=== PATIENT | male | born 1985 | race Caucasian/White ===

== ENCOUNTER 2017-03-14 10:49 | Emergency (ER) | payer MEDICAID ==
[~2017-03-14] VITALS: Ht 170.2 cm; Wt 103.0 kg
[~2017-03-14 10:49] MED LIST: BEN50 PO; CEPH-443 PO; HYDR-906 PO; IBUP-1542 PO; PRED20TA PO
[2017-03-14 10:52] VITALS: Ht 170.2 cm; Wt 103.0 kg
--- NOTE | 2017-03-14 11:30 | ERD ---
ER Documentation Chief Complaint Chief Complaint pt sent by clinic for +TB test, needs x-ray HPI 31-year-old male who was referred to the emergency room for a chest x-ray after having a positive PPD test read this afternoon. The patient had the tuberculin skin testing done 3 days ago and went in for reading and states that this is his first positive test. He has a scar to his right upper extremity which she believes is the BCG vaccination, and he is originally from [place]. He denies any cough symptoms, hemoptysis, fevers, chills or night sweats. He is otherwise healthy, and he has not had any recent travel. ROS All systems reviewed and are negative except as per history of present illness. Medications Home Meds Active Scripts Cephalexin* (Keflex*) 500 Mg Capsule, 500 MG PO QID for 5 Days, CAP Prov:LIZZIE JAMES NP 01/30/16 Hydrocodone/Acetaminophen ([place] 5-325 Tablet) 1 Each Tablet, 1 TAB PO Q6H Y for PAIN, #20 TAB Prov:LIZZIE JAMES NP 01/30/16 Ibuprofen* (Motrin*) 600 Mg Tab, 600 MG PO Q6H Y for PAIN AND OR ELEVATED TEMP, #30 TAB Prov:LIZZIE JAMES NP 01/30/16 Diphenhydramine Hcl* (Benadryl*) 50 Mg Cap, 50 MG PO Q6 Y for ITCHING, #20 Prov:MELCHOR CHANDLER PA-C 11/22/14 Prednisone* (Prednisone*) 20 Mg Tab, 20 MG PO BID for 5 Days Prov:MELCHOR CHANDLER PA-C 11/22/14 Allergies Allergies: Coded Allergies: No Known Allergy (Unverified , 11/22/14) PMhx/Soc Hx Alcohol Use: No Hx Substance Use: No Hx Tobacco Use: No Physical Exam Vitals Vital Signs Date Time Temp Pulse Resp B/P Pulse Ox O2 Delivery O2 Flow Rate FiO2 03/14/17 10:52 98.3 106 16 142/86 100 Physical Exam General: Well-developed, well-nourished. The patient appears in no acute distress. HEENT: Head is normocephalic, atraumatic. No scleral icterus. Neck: Supple. Nontender. Lungs: Clear to auscultation. Normal air movement. Heart: Regular rate and rhythm. S1 and S2 are normal. No murmurs, gallops, or rubs. Abdomen: Soft, nontender, nondistended. Bowel sounds are normoactive. Extremities: No clubbing or cyanosis. Normal pulses. Moving extremities x 4. No weakness. Neurologic: Alert and oriented 3. No focal deficits. Skin: Normal turgor. No rash or lesions. Results 24 hrs DIAGNOSTIC IMAGING REPORT Patient: ELIZABETH MUNSON : 1985 Age: 31 Sex: M MR #: [id number] DOS: 03/14/17 1108 Ordering MD: MELCHOR CHANDLER PA-C Location: [facility] Room/Bed: PROCEDURE: XR Chest. CLINICAL INDICATION: Positive PPD TECHNIQUE: PA and lateral views of the chest were obtained COMPARISON: None FINDINGS: The heart and mediastinum are within normal limits. The lungs are clear. There is no pleural effusion or pneumothorax. The bones and soft tissues are unremarkable. IMPRESSION: No active disease. No radiographic evidence of active tuberculosis. RPTAT: AA .Cliff Cortes MD, MD Date Time Electronically viewed and signed by .Cliff Cortes MD, MD on 03/14/2017 11: 31 .S/ CC: MELCHOR CHANDLER PA-C Procedures/MDM 31-year-old male who received a BCG vaccination comes in with a positive tuberculin skin test noted today. The patient is asymptomatic however was sent to the emergency department to rule out active TB disease and his chest x-ray today is normal. A 2 view chest x-ray shows no evidence of active disease likely reactive. To further evaluate the patient will likely need further blood work and will be referred back to the clinic for outpatient management. Departure Diagnosis: Primary Impression: Positive reaction to tuberculin skin test Condition: Good MELCHOR CHANDLER PA-C Mar 14, 2017 11:30
== END 2017-03-14 11:48 | disposition home or self-care (01) ==
LOC: FTE 10:49
DX: R76.11 Nonspecific reaction to tuberculin skin test without active tuberculosis (principal)
CPT/HCPCS: 71020; Z7502

== ENCOUNTER 2017-03-16 11:41 | Emergency (ER) | payer MEDICAID ==
[~2017-03-16] VITALS: Wt 102.3 kg
--- NOTE | 2017-03-16 15:00 | ERD ---
ER Documentation Chief Complaint Chief Complaint BODYACHES, ONSET SEVERAL DAYS HPI 31-year-old male, presents to the emergency department complaining of a one- week with diffuse joint and muscle pain. The pain is described as dull, deep, intermittent, 5/10. The pain gets partially better with Tylenol. No history of fever, chills, no rashes, no weight loss. The patient is requesting an excuse from work for 1 week, states that he is feeling very tired. ROS SYSTEMIC symptoms: no fever, chills, no night sweats, no weight loss EYE symptoms: No blurred vision, no eye discharge OTOLARYNGEAL symptoms: No hearing loss. No ear pain, no sore throat CARDIOVASCULAR symptoms: No chest pain or discomfort, no palpitations. PULMONARY symptoms: No dyspnea, no cough, no wheezing. GASTROINTESTINAL symptoms: No abdominal pain, no nausea, no vomiting, no diarrhea MUSCULOSKELETAL symptoms: + arthralgias, +muscle aches. NEUROLOGY symptoms: No confusion, no syncope, no numbness or tingling. SKIN: No rashes Medications Home Meds Active Scripts Hydrocodone/Acetaminophen ([place] 5-325 Tablet) 1 Each Tablet, 1 TAB PO Q6H Y for PAIN, #12 TAB Prov:VICKI ROJAS MD 03/16/17 Prednisone* (Prednisone*) 20 Mg Tab, 40 MG PO DAILY for 4 Days, TAB Prov:VICKI ROJAS MD 03/16/17 Cephalexin* (Keflex*) 500 Mg Capsule, 500 MG PO QID for 5 Days, CAP Prov:LIZZIE JAMES NP 01/30/16 Hydrocodone/Acetaminophen ([place] 5-325 Tablet) 1 Each Tablet, 1 TAB PO Q6H Y for PAIN, #20 TAB Prov:LIZZIE JAMES NP 01/30/16 Ibuprofen* (Motrin*) 600 Mg Tab, 600 MG PO Q6H Y for PAIN AND OR ELEVATED TEMP, #30 TAB Prov:LIZZIE JAMES NP 01/30/16 Diphenhydramine Hcl* (Benadryl*) 50 Mg Cap, 50 MG PO Q6 Y for ITCHING, #20 Prov:MELCHOR CHANDLER PA-C 11/22/14 Prednisone* (Prednisone*) 20 Mg Tab, 20 MG PO BID for 5 Days Prov:MELCHOR CHANDLER PA-C 11/22/14 Allergies Allergies: Coded Allergies: No Known Allergy (Unverified , 11/22/14) PMhx/Soc Medical and Surgical Hx: pt denies Medical Hx, pt denies Surgical Hx Hx Alcohol Use: No Hx Substance Use: No Hx Tobacco Use: No Smoking Status: Never smoker Physical Exam Vitals Vital Signs Date Time Temp Pulse Resp B/P Pulse Ox O2 Delivery O2 Flow Rate FiO2 03/16/17 15:08 98.0 80 18 142/66 99 Room Air 03/16/17 11:44 98.7 87 18 153/84 99 Physical Exam Patient is in no acute distress, vital signs stable. Alert and fully oriented. EYES: PERRLA, EOMI, Sclera and conjunctiva appear normal. EARS: Canals clear, tympanic membranes WNL THROAT: Normal oropharynx. NECK: Supple, No lymphadenopathy. Full ROM without pain or tenderness. HEART: RRR, no rubs, murmurs, clicks or gallops. LUNGS: Clear to auscultation. ABDOMEN: Soft, non-tender without masses or hepatosplenomegaly. EXTREMITIES: No edema bilaterally. BACK: Full ROM, no deformity, normal back exam NEURO: Cranial nerves grossly intact, no motor or sensory deficit Procedures/MDM 31y/o male patient with no medical history, presents to the ED c/o generalized arthralgia and fatigue for 7 days. Vital signs stable, Physical exam unremarkable, no evidence of inflammatory arthritis. Differential diagnosis include but not limited to: Viral infection, autoimmune process, chronic fatigue syndrome, depression. Low suspicion for malignancy. Physical examination and clinical presentation consistent most likely with reactive arthritis most likely viral. During the ED course the patient remained stable, no new complaints. Results and clinical impression discussed with patient who agrees with management. The patient is stable to be treated outpatient and will be discharged home with a Rx for prednisone and [place], some side effects of prescribed medications (headache, rash, nausea, vomiting, diarrhea, drowsiness, habituation, bleeding, hypertension, interactions with other medications) were reviewed. The patient was instructed to follow up with the primary care provider in the next 48h. If symptoms persist, worsen or new symptoms develop, then patient should return to the ED immediately. Instructions explained and given directly by me to the patient in Pashto with acknowledgment and demonstrated understanding. Disclaimer: Inadvertent spelling and grammatical errors are likely due to EHR/ dictation software use and do not reflect on the overall quality of patient care. Also, please note that the electronic time recorded on this note does not necessarily reflect the actual time of the patient encounter. Departure Diagnosis: Primary Impression: Arthralgia of multiple sites Condition: Stable Additional Instructions: Call your primary care doctor TOMORROW for an appointment during the next 1-2 days. See the doctor sooner or return here if your condition worsens before your appointment time. Thank you very much for allowing us to participate in your care. Your health and safety is our top priority at [facility]. Have prescriptions filled and follow precisely the directions on the label. Follow-up with primary care provider during the next 4 days and bring all the information and medications prescribed. If illness has not improved in 2 days, then make an appointment with primary care provider. If the provider is unavailable, return to the Emergency Department immediately. VICKI ROJAS MD Mar 16, 2017 15:00
[2017-03-16] MEDS ORDERED: HYDR-906 PO (15:02)
[2017-03-16] MEDS ORDERED: PRED20TA PO (15:02)
[2017-03-16 15:08] VITALS: BP 142/66; PULSE 80; RESP 18; TEMP 98
== END 2017-03-16 15:08 | disposition home or self-care (01) ==
LOC: FTE 11:41
DX: M25.50 Pain in unspecified joint (principal)
CPT/HCPCS: 99284